=== PATIENT | female | born 1950 | race Caucasian/White ===

== ENCOUNTER 2022-05-20 20:02 | Inpatient (IN) | payer MEDICARE ==
[2022-05-20] MEDS ORDERED: Ondansetron PF 4 MG/2 ML Vial ONE (20:45)
[2022-05-20] MEDS ORDERED: hydrALAZINE 20 MG/ML VIAL SLOW IVP PRN (21:00)
[2022-05-20] MEDS ORDERED: traMADol HCl 50 MG TAB PO PRN (21:00)
[2022-05-20] MEDS ORDERED: Dextrose 50% Abboject 50 ML SYRINGE SLOW IVP PRN (21:00)
[2022-05-20] MEDS ORDERED: Ondansetron PF 4 MG/2 ML Vial IVP PRN (21:00)
[2022-05-20] MEDS ORDERED: Promethazine HCl 25 MG/ML VIAL IM PRN (21:00)
[2022-05-20] MEDS ORDERED: Dextrose 5% in Water 1,000 ML IV PRN (21:00)
[2022-05-20] MEDS ORDERED: Labetalol HCl 100 MG/20 ML VIAL SLOW IVP PRN (21:06)
[2022-05-20] MEDS ORDERED: Lidocaine 1% (PF) 30 ML VIAL ONE (21:15)
[2022-05-20] MEDS: Acetaminophen 325 MG TAB PO SCH (22:02)
[2022-05-20] MEDS: Famotidine 20 MG TAB PO SCH (22:02)
[2022-05-20 22:36] VITALS: BMI 27.4
[2022-05-21] MEDS: CEFAZOLIN 2 GM in Sodium Chloride 0.9% 100 ML IVPB SCH ×3 (01:07→17:44)
[2022-05-21] MEDS: Acetaminophen 325 MG TAB PO SCH ×4 (05:26→23:22)
[2022-05-21] MEDS: Ascorbic Acid 500 mg Chewable Tablet PO SCH (08:12)
[2022-05-21] MEDS: Famotidine 20 MG TAB PO SCH ×2 (08:13→20:23)
[2022-05-21 08:27] LABS: #Monocytes 0.7 thou/uL (0.11-0.59); #Neutrophils 8.7 thou/uL (1.40-6.50); %Basophils 0.1 % (0.0-1.0); %Eosinophils 0.2 % (0.0-10.0); %Lymphocytes 9.9 % (21.0-51.0); %Monocytes 6.8 % (0.0-10.0); %Neutrophils 83.1 % (42.0-75.0); Hemoglobin 14.5 g/dL (12.0-16.0); Mean Corpuscular HGB CONC 33.4 g/dL (32.0-36.0); Mean Corpuscular Hemoglobin 31.1 pg (27.0-31.0); Mean Corpuscular Volume 93.3 fl (78.0-98.0); Mean Platelet Volume 8.3 fL (7.4-10.4); Platelet Count 210 10x3/uL (130-400); RBC Distribution Width 12.6 % (11.5-14.5); Red Blood Cell (RBC) Count 4.66 mill/uL (4.20-5.40); White Blood Cell (WBC) Count 10.5 10x3/uL (4.8-10.8)
[2022-05-21 08:47] LABS: Anion Gap 13 mmol/L (10-20); BUN (Urea Nitrogen) 16 mg/dL (9.8-20.1); Calc. Creatinine Clearance 86 mL/min (70-130); Calcium 9.1 mg/dL (7.8-10.44); Carbon Dioxide 21 mmol/L (23-31); Chloride 105 mmol/L (98-107); Estimated GFR 86; Glucose 119 mg/dL (80-115); Magnesium 1.8 mg/dL (1.6-2.6); Phosphorus 3.1 mg/dL (2.3-4.7); Potassium 3.9 mmol/L (3.5-5.1); Sodium 135 mmol/L (136-145)
[2022-05-21] MEDS ORDERED: Scopolamine 1.5 mg/72 hour Patch TD SCH (10:00)
[2022-05-21 16:17] LABS: Bacteria/HPF None Seen HPF (None Seen); Bilirubin Negative (Negative); Blood, Urine Negative (Negative); Clarity Clear (Clear); Glucose, Urine (Dipstick) Normal (Negative); Ketone, Urine 20 mg/dL (Negative); Leukocyte Negative Leu/uL (Negative); Nitrite Negative (Negative); Protein, Urine (Dipstick) Negative (Neg-Trace); RBC/HPF 0-3 HPF (0-3); Specific Gravity, Urine 1.019 (1.002-1.036); Squamous Epithelial 0-3 HPF (0-3); Urobilinogen Normal mg/dL (Less than 2); WBC/HPF 0-3 HPF (0-3)
[2022-05-21] MEDS ORDERED: MAGNESIUM SULFATE IVPB SCH (17:15)
[2022-05-21] MEDS ORDERED: POTASSIUM PHOSPHATE IVPB SCH (17:15)
[2022-05-21] MEDS ORDERED: SODIUM CHLORIDE 0.9% IVPB SCH (17:15)
[2022-05-21] MEDS ORDERED: Magnesium 2 GM/50 ML(in water) 2 GM in Premix Bag 1 BAG IVPB SCH (17:15)
[2022-05-21] MEDS ORDERED: Acetaminophen/Codeine 30-300mg Tablet PO PRN (21:33)
[2022-05-22] MEDS: Acetaminophen 325 MG TAB PO SCH ×4 (05:39→23:32)
[2022-05-22 06:55] LABS: #Lymphocytes 1.4 thou/uL (1.20-3.40); #Monocytes 0.9 thou/uL (0.11-0.59); #Neutrophils 6.2 thou/uL (1.40-6.50); %Basophils 0.3 % (0.0-1.0); %Eosinophils 0.2 % (0.0-10.0); %Lymphocytes 16.1 % (21.0-51.0); %Monocytes 10.2 % (0.0-10.0); %Neutrophils 73.2 % (42.0-75.0); Hemoglobin 13.5 g/dL (12.0-16.0); Mean Corpuscular HGB CONC 33.2 g/dL (32.0-36.0); Mean Corpuscular Hemoglobin 31.1 pg (27.0-31.0); Mean Corpuscular Volume 93.7 fl (78.0-98.0); Mean Platelet Volume 8.5 fL (7.4-10.4); Platelet Count 188 10x3/uL (130-400); RBC Distribution Width 12.8 % (11.5-14.5); Red Blood Cell (RBC) Count 4.34 mill/uL (4.20-5.40); White Blood Cell (WBC) Count 8.5 10x3/uL (4.8-10.8)
[2022-05-22 07:22] LABS: Anion Gap 13 mmol/L (10-20); BUN (Urea Nitrogen) 16 mg/dL (9.8-20.1); Calc. Creatinine Clearance 87 mL/min (70-130); Calcium 8.9 mg/dL (7.8-10.44); Carbon Dioxide 23 mmol/L (23-31); Chloride 106 mmol/L (98-107); Estimated GFR 87; Glucose 108 mg/dL (80-115); Magnesium 2.2 mg/dL (1.6-2.6); Potassium 3.9 mmol/L (3.5-5.1); Sodium 138 mmol/L (136-145)
[2022-05-22] MEDS ORDERED: Potassium Phosphate 30 MMOL in Sodium Chloride 0.9% 250 ML 250 ML IVPB SCH (09:00)
[2022-05-22] MEDS: Famotidine 20 MG TAB PO SCH ×2 (09:26→21:49)
[2022-05-22] MEDS: Ascorbic Acid 500 mg Chewable Tablet PO SCH (09:26)
[2022-05-22] MEDS: Acetaminophen/Codeine 30-300mg Tablet PO SCH ×3 (11:40→23:33)
[2022-05-22] MEDS: Ondansetron ODT 4 MG TAB PO PRN ×2 (11:40→21:54)
[2022-05-22] MEDS: Senokot S 8.6-50 MG TAB PO SCH (21:49)
[2022-05-23] MEDS: Acetaminophen 325 MG TAB PO SCH ×2 (05:20→12:04)
[2022-05-23] MEDS: Acetaminophen/Codeine 30-300mg Tablet PO SCH ×2 (05:20→12:04)
[2022-05-23] MEDS ORDERED: Polyethylene Glycol 3350 17 GM Packet PO SCH (09:00)
[2022-05-23] MEDS: Ascorbic Acid 500 mg Chewable Tablet PO SCH (10:16)
[2022-05-23] MEDS: Famotidine 20 MG TAB PO SCH (10:16)
[2022-05-23] MEDS: Senokot S 8.6-50 MG TAB PO SCH (10:17)
[2022-05-23 15:29] VITALS: BP 135/82; TEMP 98.2
== END 2022-05-23 17:08 | disposition home or self-care (01) | DRG 87 ==
LOC: ERS 20:02 → CCU 20:15 → EDSTATUS 20:25 → SURG A 05-21 18:50
PROVIDERS: ADMIT Surgery; ATTEND Surgery
PROC: 0HQ0XZZ Repair Scalp Skin, External Approach (ICD-10-PCS; principal; 2022-05-20)
DX: S02.119A Unspecified fracture of occiput, initial encounter for closed fracture (principal); S06.4X1A Epidural hemorrhage with loss of consciousness of 30 minutes or less, initial encounter; S06.5X1A Traumatic subdural hemorrhage with loss of consciousness of 30 minutes or less, initial encounter; S06.6X1A Traumatic subarachnoid hemorrhage with loss of consciousness of 30 minutes or less, initial encounter; R40.2412 Glasgow coma scale score 13-15, at arrival to emergency department; M19.90 Unspecified osteoarthritis, unspecified site; C44.311 Basal cell carcinoma of skin of nose; G89.11 Acute pain due to trauma; E87.6 Hypokalemia; E83.39 Other disorders of phosphorus metabolism; W10.8XXA Fall (on) (from) other stairs and steps, initial encounter; Z88.8 Allergy status to other drugs, medicaments and biological substances; K59.00 Constipation, unspecified; M81.0 Age-related osteoporosis without current pathological fracture; Z90.710 Acquired absence of both cervix and uterus
CPT/HCPCS: 36415; 36416; 70450; 80048; 81001; 83735; 84100; 85025; J2001; J2405; J2550; J3475; J3490; J7050; Q0162

== ENCOUNTER 2023-09-22 10:04 | Outpatient (CLI) | payer MEDICARE, OTHER | END 2023-09-22 10:05 | disposition home or self-care (01) | LOC: BICMRI 10:04 | PROVIDERS: ATTEND Family Medicine | DX: Z12.31 Encounter for screening mammogram for malignant neoplasm of breast (principal); R92.333 Mammographic heterogeneous density, bilateral breasts | CPT/HCPCS: A9577; C8908 ==

== ENCOUNTER 2024-02-11 13:10 | Outpatient (CLI) | payer MEDICARE, OTHER | END 2024-02-11 13:11 | disposition home or self-care (01) | LOC: SCSRAD 13:10 | DX: S39.92XA Unspecified injury of lower back, initial encounter (principal); M47.816 Spondylosis without myelopathy or radiculopathy, lumbar region; M41.9 Scoliosis, unspecified; S32.019A Unspecified fracture of first lumbar vertebra, initial encounter for closed fracture; M16.12 Unilateral primary osteoarthritis, left hip | CPT/HCPCS: 72100 ==